=== PATIENT | male | born 1995 | race Caucasian/White ===

== ENCOUNTER 2016-12-18 22:07 | Emergency (ER) | payer SELFPAY ==
[~2016-12-18] VITALS: Ht 170.2 cm; Wt 65.6 kg
[2016-12-18] MEDS ORDERED: LIDOCAINE HCL 1% 20ML VIAL (Pyxis) INJ MC ONE (22:45)
[2016-12-18] MEDS ORDERED: TETANUS, DIPHTHERIA, PERTUSSIS VAC/PF 0.5ML (>7YR OLD) IM ONE (22:45)
[2016-12-18 23:00] VITALS: BP 112/67
== END 2016-12-18 23:17 | disposition home or self-care (01) ==
LOC: ER 22:07
DX: S61.209A Unspecified open wound of unspecified finger without damage to nail, initial encounter (principal); W26.0XXA Contact with knife, initial encounter; Y93.89 Activity, other specified; Y92.89 Other specified places as the place of occurrence of the external cause; Y99.8 Other external cause status
CPT/HCPCS: 90471; 90715; 99283; J3490; X7700